=== PATIENT | female | born 2000 | race Caucasian/White ===

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

== ENCOUNTER 2019-07-30 21:50 | Emergency (ER) | payer OTHER ==
[~2019-07-30] VITALS: Ht 157.5 cm; Wt 110.7 kg
[2019-07-30 21:50] VITALS: BP 134/82
[~2019-07-30 21:50] MED LIST changes: +BACT800T5 PO; +HYDR-3715 PO; +NEXP1IMP; +SERT25TA21; +SERT50TA29; +ZOFR4TAB14 PO
[2019-07-31] MEDS ORDERED: AUGM875T28 PO (10:26)
== END 2019-07-31 00:53 | disposition left against medical advice (07) ==
LOC: M ED 21:50
DX: Z53.21 Procedure and treatment not carried out due to patient leaving prior to being seen by health care provider (principal)

== ENCOUNTER 2019-07-31 09:09 | Emergency (ER) | payer OTHER ==
[~2019-07-31] VITALS: Ht 157.5 cm; Wt 110.3 kg
[2019-07-31] MEDS ORDERED: AUGM875T28 PO (10:26)
[2019-07-31 10:56] VITALS: BP 122/76
== END 2019-07-31 11:00 | disposition home or self-care (01) ==
LOC: M ED 09:09
DX: N75.1 Abscess of Bartholin's gland (principal); Z91.048 Other nonmedicinal substance allergy status

== ENCOUNTER 2020-04-11 11:06 | Day surgery (SDC) | payer OTHER ==
[~2020-04-11] VITALS: Ht 160 cm; Wt 111.6 kg
[~2020-04-11 11:06] MED LIST changes: +AUGM875T28 PO; +LIDOCAINE 1% MDV 20ML VIAL SQ PRN; +LR 1,000 ML IV ONE; +ceFAZolin SOD 2 GM in IV 1 EA IV ONE
[2020-04-11 11:32] LABS: HEMATOCRIT 39.2 % (36.0-47.0); HEMOGLOBIN 13.1 g/dl (12.0-15.5); MEAN CORPUSCULAR HEMOGLOBIN 30.3 pg (27.0-33.0); MEAN CORPUSCULAR HGB CONC 33.4 g/dl (32.0-36.5); MEAN CORPUSCULAR VOLUME 90.5 fl (80.0-96.0); PLATELET COUNT, AUTOMATED 323 10^3/uL (150-450); RED BLOOD COUNT 4.33 10^6/uL (4.00-5.40); WHITE BLOOD COUNT 7.8 10^3/uL (4.0-10.0)
[2020-04-11 11:57] LABS: HCG, SERUM QUALITATIVE NEGATIVE (NEGATIVE)
[2020-04-11] MEDS ORDERED: SILVER NITRATE APPLICATOR As Ordered ONE (12:51)
[2020-04-11] MEDS ORDERED: LIDOCAINE 2% 100MG/5ML SDV (FOR ANES.) As Ordered ONE (13:18)
[2020-04-11] MEDS ORDERED: MIDAZOLAM INJ 2MG/2ML VIAL (J2250 PER 1MG) As Ordered ONE (13:18)
[2020-04-11] MEDS ORDERED: propofoL 200 MG/20 ML VIAL As Ordered ONE (13:18)
[2020-04-11] MEDS ORDERED: fentaNYL 100 MCG/2 ML INJECTION (J3010) As Ordered ONE ×2 (13:18→14:28)
[2020-04-11] MEDS ORDERED: dexameTHASONE 4 MG/ML 1ML VIAL (J1100 PER 1MG) As Ordered ONE (13:18)
[2020-04-11] MEDS ORDERED: ONDANSETRON 4MG/2ML VIAL As Ordered ONE (13:18)
[2020-04-11] MEDS ORDERED: BUPIVACAINE/EPIN 0.25% 30 ML VIAL As Ordered ONE (13:28)
[2020-04-11] MEDS ORDERED: HYDROMORPHONE HCL 0.5 MG/ 0.5 ML SYRINGE (J1170 PER 1) As Ordered ONE (15:30)
[2020-04-11] MEDS: HYDROMORPHONE HCL 0.5 MG/ 0.5 ML SYRINGE (J1170 PER 1) IV PRN ×2 (15:32→15:37)
[2020-04-11] MEDS ORDERED: oxyCODONE 5MG TAB PO PRN (15:45)
[2020-04-11] MEDS ORDERED: fentaNYL 100 MCG/2 ML INJECTION (J3010) IV PRN (15:45)
[2020-04-11] MEDS ORDERED: ONDANSETRON 4MG/2ML VIAL IV PRN (15:45)
[2020-04-11] MEDS ORDERED: LR 1,000 ML IV SCH (15:45)
[2020-04-11] MEDS ORDERED: KETOROLAC 30 MG/ML 1ML VIAL As Ordered ONE (15:56)
[2020-04-11] MEDS ORDERED: KETOROLAC 30 MG/ML 1ML VIAL IV PRN (16:00)
--- NOTE | 2020-04-11 17:00 | POST-OPPD ---
Postoperative Procedure Note Date Of Procedure: Apr 11, 2020 PREOPERATIVE DIAGNOSIS: Left bartholin gland cyst POSTOPERATIVE DIAGNOSIS: Left vaginal wall cyst FINDINGS: large (5-6cm) cyst, deep on the left of the vaginal wall. PROCEDURE: Vaginal Cystectomy SURGEON: prisca yarbrough DO WHOLESALE MANAGER: none ANESTHESIA: General SPECIMENS: left vaginal wall cyst ESTIMATED BLOOD LOSS: 120cc REPLACED: 1100cc LR DRAINS: n/a COMPLICATIONS: none POSTOPERATIVE CONDITION: stable Material to lab: left vaginal wall cyst Description of procedure: The risks, benefits, indications and alternatives of the procedure were reviewed with the patient and informed consent was obtained. Risk of bleeding, infection, pain, need for repeat procedure, increased risk of delivery discussed with patient. She expresses understanding and desires to proceed. Patient was brought to OR with IV running. Patient placed under general anesthesia. Placed in lithotomy position. Vaginal and perineum prepped and draped. Exam reveals left vaginal wall cyst (5-6cm) extending deep caudad. Local analgesic (0.25% marcaine with epi) injected at planned incission sites. An elliptical incision made on the left vaginal wall. Cyst identified. Sharp dissection performed around cyst. There was significant scarring noted. Cyst drained of sanqunous fluids. A hard nodule palpated inside the cyst. Vaginal defect closed with 0-vicryl interrupted in 2 layers. Vaginal mucosa closed with 4-0 vicryl. Sponge and needles count correct x 2. PRISCA YARBROUGH DO Apr 11, 2020 17:00
[2020-04-11 17:25] VITALS: BP 108/60
== END 2020-04-11 17:40 | disposition home or self-care (01) ==
LOC: M SDC 11:06
PROVIDERS: ATTEND Obstetrics & Gynecology
DX: N75.0 Cyst of Bartholin's gland (principal); K58.8 Other irritable bowel syndrome; F41.9 Anxiety disorder, unspecified; G43.909 Migraine, unspecified, not intractable, without status migrainosus
CPT/HCPCS: 36415; 56740; 84703; 85027; 88304; J0690; J1100; J1885; J2250; J2405; J3010

== ENCOUNTER 2020-04-23 20:35 | Emergency (ER) | payer OTHER ==
[~2020-04-23 20:35] MED LIST changes: -LIDOCAINE 1% MDV 20ML VIAL SQ PRN; -LR 1,000 ML IV ONE; -ceFAZolin SOD 2 GM in IV 1 EA IV ONE
== END 2020-04-24 00:28 | disposition home or self-care (01) ==
LOC: M ED 20:35
DX: G89.18 Other acute postprocedural pain (principal); Z98.890 Other specified postprocedural states

== ENCOUNTER → 2021-06-20 | Outpatient (REF) | payer OTHER, SELFPAY | LOC: M LAB REF 19:18 | PROVIDERS: ATTEND Physician Assistant | DX: R05 Cough (principal) ==

== ENCOUNTER 2021-07-09 21:47 | Emergency (ER) | payer SELFPAY ==
[~2021-07-09] VITALS: Ht 157.5 cm; Wt 112.3 kg
[2021-07-09 21:47] VITALS: BP 146/91
[2021-07-09 23:21] LABS: APPEARANCE, URINE HAZY (CLEAR); BACTERIA, URINE AUTO NEGATIVE (NEGATIVE); BILIRUBIN, URINE AUTO NEGATIVE (NEGATIVE); BLOOD, URINE BLOOD 1+ (NEGATIVE); COLOR, URINE YELLOW (YELLOW); GLUCOSE, URINE (UA) AUTO NEGATIVE (NEGATIVE); KETONE, URINE AUTO NEGATIVE (NEGATIVE); LEUKOCYTE ESTERASE, URINE AUTO NEGATIVE (NEGATIVE); MUCUS, URINE SMALL (NEGATIVE); NITRITE, URINE AUTO NEGATIVE (NEGATIVE); PROTEIN, URINE AUTO NEGATIVE (NEGATIVE); RBC, URINE AUTO 1 /HPF (0-3); SPECIFIC GRAVITY URINE AUTO 1.023 (1.002-1.035); SQUAMOUS EPITHELIAL CELL UR AU 4 /HPF (0-6); UROBILINOGEN, URINE AUTO 0.2 mg/dL (0.0-2.0); WBC, URINE AUTO 3 /HPF (0-3)
== END 2021-07-10 00:11 | disposition left against medical advice (07) ==
LOC: M ED 21:47
DX: Z53.29 Procedure and treatment not carried out because of patient's decision for other reasons (principal)

== ENCOUNTER 2021-07-13 17:32 | Emergency (ER) | payer MEDICAID, SELFPAY ==
[~2021-07-13] VITALS: Ht 160 cm; Wt 108.0 kg
--- OUTSIDE RECORDS SUMMARY | 2021-07-13 17:39 | CCD ---
Author Author [facility] Organization [facility] Address Unknown Phone Unavailable Support Name Relationship Address Phone YOLA HOOD Next Of Kin [address] [place] [address] [place] Next [place] [address] UE Next Of Kin Unknown Unavailable ANDRES LOPEZ Next Of Kin [address] [place] [address] REE LOPEZ Next Of Kin [address] [place], [place] [id number] REE LOPEZ [facility] [address] [place] [address] Unavailable Re-disclosure Warning The records that you are about to access may contain information from federally-assisted alcohol or drug abuse programs. If such information is present, then the following federally mandated warning applies: This information has been disclosed to you from records protected by federal confidentiality rules (42 CFR part 2). The federal rules prohibit you from making any further disclosure of this information unless further disclosure is expressly permitted by the written consent of the person to whom it pertains or as otherwise permitted by 42 CFR part 2. A general authorization for the release of medical or other information is NOT sufficient for this purpose. The Federal rules restrict any use of the information to criminally investigate or prosecute any alcohol or drug abuse patient.The records that you are about to access may contain highly sensitive health information, the redisclosure of which is protected by Article 27-F of the [facility] Public Health law. If you continue you may have access to information: Regarding HIV / AIDS; Provided by facilities licensed or operated by the [facility] Office of Mental Health; or Provided by the [facility] Office for People With Developmental Disabilities. If such information is present, then the following [facility] mandated warning applies: This information has been disclosed to you from confidential records which are protected by state law. State law prohibits you from making any further disclosure of this information without the specific written consent of the person to whom it pertains, or as otherwise permitted by law. Any unauthorized further disclosure in violation of state law may result in a fine or mcc sentence or both. A general authorization for the release of medical or other information is NOT sufficient authorization for further disc losure. Medications Medication Brand Name Start Date Product Form Dose Route Admi nistrative Instructions Pharmacy Instructions Status Indications Reaction Description Data Source(s) 4 mg 07/11/2021 12:00:00 AM EDT tablet 8 TAKE ONE TABLET BY MOUTH EVERY 6 HOURS NEEDED FOR NAUSEA FOR 2 DAYS TAKE ONE TABLET BY MOUTH EVERY 6 HOURS A S NEEDED FOR NAUSEA FOR 2 DAYS SOLD: 07/11/2021 [facility] 875 mg 03/18/2021 12:00:00 AM EDT tablet 20 TAKE ONE TABLET BY MOUTH EVERY 12 HOURS FOR 10 DAYS TAKE ONE TABLET BY MOUTH EVERY 12 HOURS FOR 10 DAYS SO LD: 03/18/2021 [facility] Insurance Providers Payer name Policy type / Coverage type Policy ID Covered democrat ID Covered democrat's relationship to smith Policy Smith Plan Information [facility] HUMANA [facility] [id number] FA2 [id number] [facility] [id number] FA2 [id number] SELF PAY ONLY SP [facility] [id number] FA2 [id number] Problems, Conditions, and Diagnoses No Information Surgeries/Procedures No Information Results ID Date Data Source [id number] 06/20/2021 03:00:00 PM EDT [facility] Name Value Range Interpretation Code Description Data [place] rce(s) Supporting Document(s) SARS-CoV-2 (COVID 19) NEGATIVE - SARS-CoV-2 (COVID19) [facility] This lab was ordered by [facility] a nd reported by [facility]. Procedure Social History No Information
[2021-07-13 17:41] VITALS: O2SAT 100
--- OUTSIDE RECORDS SUMMARY | 2021-07-13 17:59 | CCD ---
Author Author [facility] Organization [facility] Address Unknown Phone Unavailable Support Name Relationship Address Phone RAYMOND Next Of Kin [address] [place] [address] YOLA HOOD Next Of Kin [address] [place] [address] [place] [address] UE Next Of Kin Unknown Unavailable ANDRES LOPEZ Next Of Kin [address] [place] [id number] REE LOPEZ Next Of Kin [address] [place], [place] [id number] REE LOPEZ [facility] [address] [place] [address] Unavailable Re-disclosure Warning The records that you [...] is protected by Article 27-F of the [facility] Public Health law. If you continue you may have access to information: Regarding HIV / AIDS; Provided by facilities licensed or operated by the [facility] Office of Mental Health; or Provided by the [facility] Office for People With Developmental Disabilities. If such information is present, then the following [facility] mandated warning applies: This information has [...] FOR NAUSEA FOR 2 DAYS SOLD: 07/11/2021 [facility] 875 mg 03/18/2021 12:00:00 AM EDT tablet 20 TAKE ONE TABLET BY MOUTH EVERY 12 HOURS FOR 10 DAYS TAKE ONE TABLET BY MOUTH EVERY 12 HOURS FOR 10 DAYS SO LD: 03/18/2021 [facility] Insurance Providers Payer name Policy type / Coverage type Policy ID Covered republican ID Covered republican's relationship to smith Policy Smith Plan Information [facility] HUMANA [id number] FA2 [id number] [facility] [id number] FA2 [id number] [facility] MEDICAID [id number] SP [id number] SELF PAY ONLY [facility] [id number] FA2 [id number] Problems, Conditions, and Diagnoses No Information Surgeries/Procedures No Information Results ID Date Data Source [id number] 06/20/2021 03:00:00 PM EDT [facility] Name Value Range Interpretation Code Description Data [place] rce(s) Supporting Document(s) SARS-CoV-2 (COVID 19) NEGATIVE - SARS-CoV-2 (COVID19) [facility] This lab was ordered by [facility] a nd reported by [facility]. Procedure Social History No Information
[2021-07-13 18:43] LABS: RSV AMPLIFICATION NEGATIVE (NEGATIVE)
[2021-07-13] MEDS ORDERED: VENTAER INH (19:27)
[2021-07-13 20:14] VITALS: BP 165/99
== END 2021-07-13 20:16 | disposition home or self-care (01) ==
LOC: M ED 17:32
DX: R05.9 Cough, unspecified (principal); R06.00 Dyspnea, unspecified; R52 Pain, unspecified; U07.1 COVID-19; F33.9 Major depressive disorder, recurrent, unspecified; F41.9 Anxiety disorder, unspecified

== ENCOUNTER 2021-10-08 15:09 | Emergency (ER) | payer MEDICAID, OTHER, SELFPAY ==
[~2021-10-08 15:09] MED LIST changes: +VENTAER INH
[2021-10-08 15:10] VITALS: BP 124/78
[2021-10-08] MEDS ORDERED: LORazepam 2 MG/ML VIAL IV STA (15:39)
[2021-10-08 16:17] LABS: BASO # 0.1 10^3/uL (0.0-0.2); BASO % 0.6 % (0.0-1.0); EOS # 0.1 10^3/uL (0.0-0.5); EOS % 0.7 % (0.0-3.0); HEMATOCRIT 39.4 % (36.0-47.0); LYMPH # 2.4 10^3/uL (1.5-5.0); LYMPH % 25.4 % (24.0-44.0); MEAN CORPUSCULAR HEMOGLOBIN 29.7 pg (27.0-33.0); MONO # 0.6 10^3/uL (0.0-0.8); MONO % 6.7 % (2.0-8.0); NEUTROPHILS # 6.3 10^3/uL (1.5-8.5); NEUTROPHILS % 66.3 % (36.0-66.0); PLATELET COUNT, AUTOMATED 348 10^3/uL (150-450); RED BLOOD COUNT 4.38 10^6/uL (4.00-5.40); WHITE BLOOD COUNT 9.6 10^3/uL (4.0-10.0)
[2021-10-08 16:29] LABS: VENOUS BASE EXCESS -0.8 (-2.0-2.0); VENOUS HCO3 24.3 MEQ/L (23.0-27.0); VENOUS O2 SATURATION 79.1 % (60.0-80.0); VENOUS PARTIAL PRESSURE O2 41.6 mmHg (30.0-50.0); VENOUS PH 7.381 UNITS (7.330-7.430); VENOUS STANDARD HCO3 23.4 MEQ/L; VENOUS TOTAL CO2 25.6 MEQ/L (24.0-28.0)
[2021-10-08 17:20] LABS: HCG, SERUM QUALITATIVE NEGATIVE (NEGATIVE)
[2021-10-08 18:00] LABS: BLOOD UREA NITROGEN 9 MG/DL (7-18); GLUCOSE, FASTING 99 MG/DL (70-100)
[2021-10-08 18:01] LABS: ALBUMIN 3.6 GM/DL (3.2-5.2); ALT/SGPT 22 IU/L (0-32); BILIRUBIN,TOTAL 0.3 MG/DL (0.2-1.0); CALCIUM LEVEL 9.4 MG/DL (8.5-10.1); CARBON DIOXIDE LEVEL 25 mmol/L (20-29); CHLORIDE LEVEL 106 MEQ/L (98-107); CREATININE FOR GFR 0.64 MG/DL (0.55-1.30); GLOMERULAR FILTRATION RATE > 60.0 (>60); POTASSIUM SERUM 4.6 MEQ/L (3.5-5.1); SODIUM LEVEL 139 MEQ/L (136-145); TOTAL PROTEIN 8.2 GM/DL (6.4-8.2)
== END 2021-10-08 20:26 | disposition home or self-care (01) ==
LOC: M ED 15:09
DX: R47.89 Other speech disturbances (principal); G25.9 Extrapyramidal and movement disorder, unspecified; F41.9 Anxiety disorder, unspecified
CPT/HCPCS: 80053; 82330; 82550; 82803; 84703; 85025; 96374; 99284; J2060

== ENCOUNTER 2021-10-31 15:01 | Emergency (ER) | payer OTHER ==
[~2021-10-31] VITALS: Ht 157.5 cm; Wt 109.0 kg
[2021-10-31 15:16] VITALS: BP 130/74
[2021-10-31] MEDS ORDERED: ISIB1TAB (15:23)
[2021-10-31] MEDS ORDERED: KETOROLAC 30 MG/ML 1ML VIAL IM ONE (18:55)
[2021-10-31] MEDS ORDERED: ONDANSETRON 4 MG ORAL DISINTEGRATING TAB PO ONE (18:55)
[2021-10-31] MEDS ORDERED: HYDR-3363 PO (20:56)
== END 2021-10-31 21:17 | disposition home or self-care (01) ==
LOC: M ED 15:01
DX: F43.0 Acute stress reaction (principal); F41.9 Anxiety disorder, unspecified; G43.909 Migraine, unspecified, not intractable, without status migrainosus; Z79.899 Other long term (current) drug therapy; Z91.048 Other nonmedicinal substance allergy status
CPT/HCPCS: 96372; 99284; J1885; Q0162

== ENCOUNTER → 2022-02-03 | Outpatient (REF) | payer OTHER ==
[~2022-02-03] MED LIST changes: +HYDR-3363 PO; +ISIB1TAB
== END ==
LOC: M LAB REF 12:32
PROVIDERS: ATTEND Physician Assistant Medical
DX: R50.9 Fever, unspecified (principal); R53.83 Other fatigue

== ENCOUNTER → 2022-03-12 | Outpatient (CLI) | payer OTHER ==
[2022-03-12 12:37] LABS: CHOLESTEROL RISK RATIO 4.068 (<5)
== END ==
LOC: M WUC 10:00
PROVIDERS: ATTEND Physician Assistant
DX: Z13.220 Encounter for screening for lipoid disorders (principal)

== ENCOUNTER 2022-12-19 20:40 | Emergency (ER) | payer OTHER ==
[~2022-12-19] VITALS: Ht 157.5 cm; Wt 113.2 kg
[~2022-12-19 20:40] MED LIST changes: +ETON68IM; -NEXP1IMP
[2022-12-19 21:08] LABS: BASO # 0.1 10^3/uL (0.0-0.2); BASO % 0.8 % (0.0-1.0); EOS # 0.1 10^3/uL (0.0-0.5); EOS % 1.1 % (0.0-3.0); HEMATOCRIT 38.4 % (36.0-47.0); HEMOGLOBIN 12.6 g/dl (12.0-15.5); LYMPH # 3.2 10^3/uL (1.5-5.0); LYMPH % 35.9 % (24.0-44.0); MEAN CORPUSCULAR HEMOGLOBIN 29.8 pg (27.0-33.0); MEAN CORPUSCULAR HGB CONC 32.8 g/dl (32.0-36.5); MEAN CORPUSCULAR VOLUME 90.8 fl (80.0-96.0); MONO # 0.6 10^3/uL (0.0-0.8); MONO % 6.6 % (2.0-8.0); NEUTROPHILS % 55.4 % (36.0-66.0); PLATELET COUNT, AUTOMATED 350 10^3/uL (150-450); RED BLOOD COUNT 4.23 10^6/uL (4.00-5.40)
[2022-12-19 21:28] LABS: CK-MB VALUE MASS < 1.0 NG/ML (<3.6)
[2022-12-19 21:29] LABS: CPK CREATINE PHOSPHOKINASE 66 U/L (34-145); MB/CK RELATIVE INDEX 1.51 (< OR =4)
[2022-12-19 21:30] LABS: BLOOD UREA NITROGEN 9 MG/DL (9-23); CALCIUM LEVEL 8.7 MG/DL (8.5-10.1); CARBON DIOXIDE LEVEL 28 MMOL/L (20-31); CHLORIDE LEVEL 106 MMOL/L (98-107); CREATININE FOR GFR 0.56 MG/DL (0.55-1.30); GLOMERULAR FILTRATION RATE > 60.0 (>60); GLUCOSE, FASTING 96 MG/DL (60-100); SODIUM LEVEL 139 MMOL/L (136-145)
[2022-12-19 21:32] LABS: HCG, SERUM QUALITATIVE NEGATIVE (NEGATIVE)
[2022-12-20] MEDS ORDERED: GI COCKTAIL 50ML BTL(HYOSCYAMINE/MAALOX/LIDOCAINE VISCOUS)(1:3:1) PO ONE (00:40)
[2022-12-20] MEDS ORDERED: ONDANSETRON 4MG ORAL DISINTEGRATING TAB PO ONE (00:40)
[2022-12-20] MEDS ORDERED: FAMOTIDINE 20 MG TAB PO ONE (00:40)
[2022-12-20] MEDS ORDERED: PANTOPRAZOLE 40MG TAB (PROTONIX) PO ONE (00:40)
[2022-12-20] MEDS ORDERED: PANT40TA29 PO (01:58)
[2022-12-20 02:09] VITALS: BP 133/76
== END 2022-12-20 03:20 | disposition home or self-care (01) ==
LOC: M ED 20:40
DX: K21.9 Gastro-esophageal reflux disease without esophagitis (principal); F32.A Depression, unspecified; Z79.899 Other long term (current) drug therapy

== ENCOUNTER → 2023-01-16 | Outpatient (CLI) | payer OTHER ==
[~2023-01-16] MED LIST changes: +PANT40TA29 PO
== END ==
LOC: M RAD 11:56
PROVIDERS: ATTEND Orthopaedic Surgery
DX: M79.661 Pain in right lower leg (principal)

== ENCOUNTER → 2023-04-09 | Outpatient (REF) | payer OTHER ==
[~2023-04-09] MED LIST changes: +ALBU6.7H6 INH; +BENZ200C70 PO; +LEXA1TAB2; +MACR100C43 PO
[2023-04-09 18:21] LABS: GC DNA AMPLIFICATION NEGATIVE (NEGATIVE)
== END ==
LOC: M LAB REF 16:12
PROVIDERS: ATTEND Physician Assistant
DX: Z12.4 Encounter for screening for malignant neoplasm of cervix (principal); R87.610 Atypical squamous cells of undetermined significance on cytologic smear of cervix (ASC-US)

== ENCOUNTER 2023-05-21 15:06 | Emergency (ER) | payer OTHER ==
[~2023-05-21] VITALS: Ht 160 cm; Wt 117.3 kg
[~2023-05-21 15:06] MED LIST changes: -ALBU6.7H6 INH; -BENZ200C70 PO; -LEXA1TAB2; -MACR100C43 PO
[2023-05-21 15:07] VITALS: BP 136/80; TEMP 98.4; O2SAT 99
[2023-05-21] MEDS ORDERED: LEXA1TAB2 (15:17)
[2023-05-21 17:20] LABS: RSV AMPLIFICATION NEGATIVE (NEGATIVE)
[2023-05-21] MEDS ORDERED: KETOROLAC 30 MG/ML 1ML VIAL IV ONE ×2 (19:10→21:15)
[2023-05-21] MEDS ORDERED: NS 1,000 ML IV ONE (19:10)
[2023-05-21] MEDS ORDERED: IPRATROPIUM 0.5MG/ALBUTEROL 2.5MG INH SOL UD 3ML (DUONEB) NEB PRN (19:10)
[2023-05-21 21:05] LABS: VENOUS BASE EXCESS -0.5 (-2.0-2.0); VENOUS HCO3 25.7 MMOL/L (23.0-27.0); VENOUS O2 SATURATION 56.8 % (60.0-80.0); VENOUS PARTIAL PRESSURE CO2 48.2 mmHg (38.0-50.0); VENOUS PARTIAL PRESSURE O2 29.9 mmHg (30.0-50.0); VENOUS PH 7.344 UNITS (7.330-7.430); VENOUS STANDARD HCO3 23.1 MMOL/L; VENOUS TOTAL CO2 27.1 MMOL/L (24.0-28.0)
[2023-05-21 21:11] LABS: BASO # 0.1 10^3/uL (0.0-0.2); BASO % 0.5 % (0.0-1.0); EOS # 0.1 10^3/uL (0.0-0.5); EOS % 0.6 % (0.0-3.0); HEMATOCRIT 37.8 % (36.0-47.0); HEMOGLOBIN 12.5 g/dl (12.0-15.5); LYMPH # 4.2 10^3/uL (1.5-5.0); LYMPH % 28.1 % (24.0-44.0); MEAN CORPUSCULAR HEMOGLOBIN 29.6 pg (27.0-33.0); MEAN CORPUSCULAR HGB CONC 33.1 g/dl (32.0-36.5); MEAN CORPUSCULAR VOLUME 89.6 fl (80.0-96.0); MONO # 0.9 10^3/uL (0.0-0.8); MONO % 6.3 % (2.0-8.0); NEUTROPHILS # 9.5 10^3/uL (1.5-8.5); NEUTROPHILS % 64.2 % (36.0-66.0); PLATELET COUNT, AUTOMATED 396 10^3/uL (150-450); RED BLOOD COUNT 4.22 10^6/uL (4.00-5.40); WHITE BLOOD COUNT 14.8 10^3/uL (4.0-10.0)
[2023-05-21 21:23] LABS: ERYTHROCYTE SEDIMENTATION RATE 50 mm/hr (0-20)
[2023-05-21 21:33] LABS: CK-MB VALUE MASS < 1.0 NG/ML (<3.6); LIPASE 44 U/L (12-53)
[2023-05-21 21:35] LABS: ALBUMIN 3.9 G/DL (3.2-5.2); ALKALINE PHOSPHATASE 76 U/L (46-116); ALT/SGPT 20 U/L (7.0-40); AST/SGOT 19 U/L (<34); BILIRUBIN,DIRECT < 0.1 MG/DL (<0.4); BILIRUBIN,TOTAL 0.2 MG/DL (0.3-1.2); TOTAL PROTEIN 8.2 G/DL (5.7-8.2)
[2023-05-21 21:40] LABS: CPK CREATINE PHOSPHOKINASE 104 U/L (34-145); MB/CK RELATIVE INDEX 0.96 (< OR =4)
[2023-05-21] MEDS ORDERED: ALBU6.7H6 INH (23:54)
[2023-05-21] MEDS ORDERED: BENZ200C70 PO (23:54)
[2023-05-21] MEDS ORDERED: MACR100C43 PO (23:54)
[2023-05-21] MEDS ORDERED: NITROFURANTOIN (MACROBID) 100 MG CAP PO ONE (23:55)
== END 2023-05-22 00:52 | disposition home or self-care (01) ==
LOC: M ED 15:06
DX: J06.9 Acute upper respiratory infection, unspecified (principal); N39.0 Urinary tract infection, site not specified; J45.909 Unspecified asthma, uncomplicated; K21.9 Gastro-esophageal reflux disease without esophagitis; Z79.3 Long term (current) use of hormonal contraceptives; Z79.899 Other long term (current) drug therapy; Z91.89 Other specified personal risk factors, not elsewhere classified
CPT/HCPCS: 71046; 80047; 80076; 81001; 82550; 82553; 82803; 83690; 84702; 85025; 85379; 85652; 86140; 87086; 87631; 93005; 96374; 99284; J1885

== ENCOUNTER 2024-03-29 17:49 | Inpatient (IN) | payer OTHER ==
[~2024-03-29] VITALS: Ht 160 cm; Wt 110.6 kg
[~2024-03-29 17:49] MED LIST changes: +ALBU6.7H6 INH; +BENZ200C70 PO; -ISIB1TAB; +ISIB1TAB PO; +LEXA1TAB2 PO; +MACR100C43 PO
[2024-03-29 19:12] LABS: HEMATOCRIT 37.3 % (36.0-47.0); HEMOGLOBIN 12.4 g/dl (12.0-15.5); MEAN CORPUSCULAR HEMOGLOBIN 30.4 pg (27.0-33.0); MEAN CORPUSCULAR HGB CONC 33.2 g/dl (32.0-36.5); MEAN CORPUSCULAR VOLUME 91.4 fl (80.0-96.0); PLATELET COUNT, AUTOMATED 356 10^3/uL (150-450); RED BLOOD COUNT 4.08 10^6/uL (4.00-5.40); WHITE BLOOD COUNT 7.9 10^3/uL (4.0-10.0)
[2024-03-29 19:30] LABS: AMPHETAMINES LEVEL URINE NEGATIVE (NEGATIVE); BARBITURATES URINE NEGATIVE (NEGATIVE); BENZODIAZEPINES URINE NEGATIVE (NEGATIVE); COCAINE METABOLITE URINE NEGATIVE (NEGATIVE); METHADONE URINE NEGATIVE (NEGATIVE)
[2024-03-29 19:31] LABS: CANNABINOIDS URINE NEGATIVE (NEGATIVE); OPIATES URINE NEGATIVE (NEGATIVE); PHENCYCLIDINE URINE NEGATIVE (NEGATIVE)
[2024-03-29 19:32] LABS: ETHYL ALCOHOL (ETHANOL) < 0.003 % (0.000-0.010)
[2024-03-29 19:34] LABS: ALBUMIN 3.5 G/DL (3.2-5.2); ALKALINE PHOSPHATASE 65 U/L (46-116); ALT/SGPT 13 U/L (7.0-40); AST/SGOT < 8 U/L (<34); BILIRUBIN,DIRECT < 0.1 MG/DL (<0.4); BILIRUBIN,TOTAL 0.2 MG/DL (0.3-1.2); BLOOD UREA NITROGEN 12 MG/DL (9-23); CALCIUM LEVEL 9.4 MG/DL (8.5-10.1); CARBON DIOXIDE LEVEL 28 MMOL/L (20-31); CHLORIDE LEVEL 107 MMOL/L (98-107); CREATININE FOR GFR 0.51 MG/DL (0.55-1.30); GLOMERULAR FILTRATION RATE > 60.0 (>60); GLUCOSE, FASTING 84 MG/DL (60-100); POTASSIUM SERUM 4.5 MMOL/L (3.5-5.1); SALICYLATE LEVEL < 3.0 MG/DL (<30); SODIUM LEVEL 140 MMOL/L (136-145); TOTAL PROTEIN 7.5 G/DL (5.7-8.2)
[2024-03-29 19:36] LABS: THYROID STIMULATING HORMONE 2.402 uIU/ML (0.55-4.78)
[2024-03-29 19:47] LABS: HCG, SERUM QUALITATIVE NEGATIVE (NEGATIVE)
[2024-03-29] MEDS ORDERED: HOME MED LIST COMPLETE! XX SCH (20:35)
[2024-03-29] MEDS ORDERED: VENTAER INH (20:35)
[2024-03-29] MEDS ORDERED: HYDR-3363 PO (20:35)
[2024-03-29] MEDS ORDERED: MULTTAB61 PO (20:35)
[2024-03-29] MEDS: ESCITALOPRAM OXALATE 10 MG TAB (LEXAPRO) PO SCH (22:13)
[2024-03-30] MEDS: ACETAMINOPHEN TAB 650MG DOSE (2X325MG) PO ONE (04:37)
[2024-03-30] MEDS ORDERED: ISIBLOOM PO SCH (09:00)
[2024-03-30] MEDS: MULTIVITAMINS/MINERALS THERAP 1 TAB PO SCH (09:08)
[2024-03-30] MEDS ORDERED: MAALOX 30 ML SUSP *UDC PO PRN (12:30)
[2024-03-30] MEDS ORDERED: MOM 30ML SUSPENSION UDC PO PRN (12:30)
[2024-03-30] MEDS ORDERED: IBUPROFEN 400MG TAB PO PRN (12:30)
[2024-03-30] MEDS ORDERED: diphenhydrAMINE 25MG CAP PO PRN (12:30)
[2024-03-30 16:31] VITALS: BP 133/78; TEMP 98.7; O2SAT 98
[2024-03-30] MEDS: ENSKYCE PO SCH (22:22)
[2024-03-31 05:23] VITALS: BP 107/66; TEMP 96.9
[2024-03-31] MEDS: busPIRone 5 MG TAB PO SCH (09:59)
[2024-03-31 15:38] VITALS: BP 129/65; TEMP 98; O2SAT 99
[2024-03-31] MEDS: ESCITALOPRAM OXALATE 10 MG TAB (LEXAPRO) PO SCH (20:24)
[2024-04-01] MEDS: PILL CUTTER 1 EACH XX PRN (08:29)
[2024-04-01 15:52] VITALS: BP 113/70; TEMP 97.9; O2SAT 99
[2024-04-01] MEDS: traZODone 50 MG TAB PO PRN (20:24)
[2024-04-02 06:14] VITALS: BP 115/67; TEMP 98.3; O2SAT 99
[2024-04-02 16:41] VITALS: BP 139/72; TEMP 98.6; O2SAT 99
[2024-04-02] MEDS: ACETAMINOPHEN TAB 650MG DOSE (2X325MG) PO PRN (17:37)
[2024-04-03 06:00] VITALS: BP 105/59; TEMP 98.2; O2SAT 97
[2024-04-03 15:56] VITALS: BP 125/62; TEMP 98.4; O2SAT 99
[2024-04-04 07:05] VITALS: BP 115/74; TEMP 97.8; O2SAT 96
[2024-04-04] MEDS ORDERED: LEXA1TAB PO (10:07)
[2024-04-04] MEDS ORDERED: TRAZ-252 PO (10:07)
[2024-04-04] MEDS ORDERED: BUSP7.5T7 PO (10:07)
== END 2024-04-04 16:23 | disposition home or self-care (01) | DRG 756 ==
LOC: M ED 17:49 → M ED INP 03-30 12:26 → M PSY 03-30 15:26
PROVIDERS: ADMIT Student in an Organized Health Care Education/Training Program; ATTEND Student in an Organized Health Care Education/Training Program
DX: F41.1 Generalized anxiety disorder (principal); F60.3 Borderline personality disorder; R45.851 Suicidal ideations; E66.9 Obesity, unspecified; Z91.51 Personal history of suicidal behavior; Z81.8 Family history of other mental and behavioral disorders; Z79.899 Other long term (current) drug therapy; Z91.048 Other nonmedicinal substance allergy status; Z88.8 Allergy status to other drugs, medicaments and biological substances

== ENCOUNTER → 2024-06-03 | Outpatient (REF) | payer OTHER ==
[~2024-06-03] MED LIST changes: +BUSP7.5T7 PO; +LEXA1TAB PO; +MULTTAB61 PO; +TRAZ-252 PO
[2024-06-08 13:52] LABS: HPV APTIMA Not Detected (Not Detected)
== END ==
LOC: M LAB REF 16:36
PROVIDERS: ATTEND Physician Assistant
DX: Z12.4 Encounter for screening for malignant neoplasm of cervix (principal)

== ENCOUNTER 2024-09-22 01:16 | Emergency (ER) | payer OTHER ==
[~2024-09-22] VITALS: Ht 160 cm; Wt 115.6 kg
[2024-09-22 01:19] VITALS: BP 141/86; TEMP 97.6; O2SAT 100
== END 2024-09-22 02:31 | disposition left against medical advice (07) ==
LOC: M ED 01:16
DX: Z53.21 Procedure and treatment not carried out due to patient leaving prior to being seen by health care provider (principal)

== ENCOUNTER → 2025-02-01 | Outpatient (REF) | payer OTHER ==
[2025-02-01 12:41] LABS: APPEARANCE, URINE HAZY (CLEAR); BACTERIA, URINE AUTO 1+ (NEGATIVE); BILIRUBIN, URINE AUTO NEGATIVE (NEGATIVE); BLOOD, URINE BLOOD 2+ (NEGATIVE); COLOR, URINE YELLOW (YELLOW); GLUCOSE, URINE (UA) AUTO NEGATIVE (NEGATIVE); KETONE, URINE AUTO NEGATIVE (NEGATIVE); LEUKOCYTE ESTERASE, URINE AUTO NEGATIVE (NEGATIVE); MUCUS, URINE SMALL (NEGATIVE); NITRITE, URINE AUTO NEGATIVE (NEGATIVE); PROTEIN, URINE AUTO NEGATIVE (NEGATIVE); RBC, URINE AUTO 27 /HPF (0-3); SQUAMOUS EPITHELIAL CELL UR AU 1 /HPF (0-6); UROBILINOGEN, URINE AUTO 0.2 mg/dL (0.0-2.0); WBC, URINE AUTO 1 /HPF (0-3)
== END ==
LOC: M LAB REF 12:01
PROVIDERS: ATTEND Physician Assistant
DX: N39.0 Urinary tract infection, site not specified (principal)

== ENCOUNTER → 2025-06-09 | Outpatient (REF) | payer OTHER | LOC: M LAB REF 17:04 | PROVIDERS: ATTEND Nurse Practitioner Family | DX: J00 Acute nasopharyngitis [common cold] (principal) ==

== ENCOUNTER → 2025-07-31 | Outpatient (REF) | payer OTHER ==
[2025-08-03 09:53] LABS: HPV APTIMA Not Detected (Not Detected)
== END ==
LOC: M LAB REF 07:35
PROVIDERS: ATTEND Student in an Organized Health Care Education/Training Program
DX: Z12.4 Encounter for screening for malignant neoplasm of cervix (principal)